=== PATIENT | male | born 1975 | race African-American/Black ===

== ENCOUNTER 2017-08-06 12:33 | Emergency (ER) | payer SELFPAY ==
[2017-08-06 12:40] VITALS: BP 196/116; BMI 34.2
--- NOTE | 2017-08-06 13:48 | DR.GENAD ---
HPI - PCP Primary Care Physician: NFD - HPI Comment HPI Comment: PAIN IS SHARP AND GO ACROSS CHEST. RADIATES TO ARMS. NO FEVER. WEAK AND SOB. PAIN INTERMITTENT. WORSE TODAY. ALSO EPIGASTRIC PAIN PRESENT. - Complaint/Symptoms Chief Complaint Doctors Comments: CHEST PAIN Chief Complaint:: PATIENT STATED THAT HIS CHEST HAS BEEN HURTING FOR WEEKS NOW. IT JUST STARTED ALL OF A SUDDEN. HE STATED THAT IS GOES ACROSS THE CHEST AND ALSO HAVE RIGHT ARM PAIN. - Nurses notes reviewed Nurses Notes Review: Yes - Source History Provided: Patient - Mode of Arrival Mode of Arrival: Ambulatory - Timing Onset of Chief Complaint: 07/23/17 Came on: Gradually - Duration Duration: Intermittent Duration: Weeks - Severity Severity: Moderate PMH - PMH Past Medical History: Yes Past Medical History: Hypertension Past Surgical History: No - Family History History of Family Medical Conditions: Yes Family Medical History: Cancer - Social History Does patient currently use any type of tobacco product: Yes Have you used tobacco products in the last 12 months: Yes Type of Tobacco Use: Cigars Does any household member use tobacco: No Alcohol Use: Occasionally Do you use any recreational Drugs:: No Lives With: Family Lives Where: Home - infectious screening In the last 2 months have you had wt loss of >10#?: NO Have you had fever, night sweats or hemotysis?: No Have you traveled outside the country in the last 6 months?: No Isolation: Standard ROS - Review of Systems Constitutional: Weakness, Fatigue. negative: Chills, Fever Eyes: No Symptoms Reported. negative: Eye Pain, Discharge ENTM: No Symptoms Reported. negative: Ear Pain, Nose Discharge, Nose Congestion , Throat Pain Respiratoy: Non-Productive Cough, Short of Breath. negative: Productive Cough, Wheezing, Hemoptysis Cardiovascular: Chest Pain. negative: Edema, Palpitations Gastrointestinal/Abdominal: Abdominal Pain, Nausea. negative: Constipation, Diarrhea, Vomiting Genitourinary: No Symptoms Reported. negative: Dysuria, Frequency, Hematuria Neurological: Weakness. negative: Headache, Dizziness Musculoskeletal: No Symptoms Reported Integumentary: No Symptoms Reported Hematologic/Lymphatic: No Symptoms Reported Endocrine: No Symptoms Reported All Other Systems: Reviewed and Negative PE - Vital Signs Vitals: Temperature 98.7 F Pulse Rate 67 Respiratory Rate 20 Blood Pressure [Right Arm] 157/88 Blood Pressure 196/116 O2 Sat by Pulse Oximetry 99 - General Limitations: No Limitations General Appearance: Alert - Head Head Exam: Normal Inspection - Eyes Eye exam: Normal Appearance - ENT ENT Exam: Normal External Ear Exam External Ear Exam: Normal External Inspection TM/Canal Exam: Left Normal Nose Exam: Normal Nose Exam Mouth Exam: Normal Inspection Throat Exam: Normal Inspection - Neck Neck Exam: Trachea Midline - Chest Chest Inspection: Symmetric Chest Wall Rise - Respiratory Respiratory Exam: Normal Lung Sounds Bilat Respiratory Exam: Bilateral Clear to Auscultation - Cardiovascular Cardiovascular Exam: Regular Rate, Normal Rhythm, Normal Heart Sounds - Abdominal Exam Abdominal Exam: Normal Bowel Sounds, Soft. negative: Tenderness - Extremities Extremities Exam: Normal Inspection - Back Back Exam: Normal Inspection - Neurologic Neurological Exam: Alert, Oriented X3 - Psychiatric Psychiatric Exam: Normal Affect, Normal Mood - Skin Skin Exam: Normal Color MDM - Differential Diagnosis Differential Diagnosis: CHEST PAIN, ABDOMINAL PAIN Course - Treatment Treatment: SEE ORDERS - Education/Counseling Education/Counseling: Patient, Education Educated On: Treatment, Diagnosis, Needs for Follow Up ROR - Labs Reviewed Laboratory Results Reviewed?: Yes Result Diagrams: 08/06/17 14:00 08/06/17 14:00 Laboratory: WBC 6.1 X10^3/uL (3.6-10.0) 08/06/17 14:00 RBC 5.51 X10^6/uL (4.7-6.0) 08/06/17 14:00 Hgb 15.2 g/dL (13.5-18.0) 08/06/17 14:00 Hct 44.9 % (42.0-54.0) 08/06/17 14:00 MCV 81.5 fL (80.0-100.0) 08/06/17 14:00 MCH 27.7 pg (27.0-34.0) 08/06/17 14:00 MCHC 33.9 g/dL (33.0-35.0) 08/06/17 14:00 RDW 13.5 % (11.6-16.5) 08/06/17 14:00 Plt Count 245 X10^3/uL (150.0-450.0) 08/06/17 14:00 MPV 6.5 fL (7.4-11.0) L 08/06/17 14:00 Neut % 46.4 % (42.0-75.0) 08/06/17 14:00 Lymph % 35.5 % (21.0-51.0) 08/06/17 14:00 [place] % 11.1 % (0.0-13.0) 08/06/17 14:00 Eos % 5.8 % (0.9-2.9) H 08/06/17 14:00 Baso % 1.2 % (0.2-1.0) H 08/06/17 14:00 Neut # 2.9 x10^3/uL (2.2-4.8) 08/06/17 14:00 Lymph # 2.2 X10^3/uL (1.3-2.9) 08/06/17 14:00 [place] # 0.7 x10^3/uL (0.3-0.8) 08/06/17 14:00 Eos # 0.4 x10^3/uL (0.0-0.2) H 08/06/17 14:00 Baso # 0.1 X10^3/uL (0.0-0.1) 08/06/17 14:00 Absolute Nucleated RBC 0.0 /100WBC 08/06/17 14:00 D-Dimer 50.9 ng/mL (0-400) 08/06/17 14:00 Sodium 141 mmol/L (136-145) 08/06/17 14:00 Corrected Sodium TNP 08/06/17 14:00 Potassium 4.2 mmol/L (3.5-5.1) 08/06/17 14:00 Chloride 106 mmol/L (98-107) 08/06/17 14:00 Carbon Dioxide 29.2 mmol/L (21-32) 08/06/17 14:00 BUN 9 mg/dL (7-18) 08/06/17 14:00 Creatinine 1.06 mg/dL (0.70-1.30) 08/06/17 14:00 Est GFR (MDRD) Af Amer > 60 (>60) 08/06/17 14:00 Est GFR (MDRD) Non-Af > 60 (>60) 08/06/17 14:00 Glucose 91 mg/dL (65-99) 08/06/17 14:00 Calcium 8.9 mg/dL (8.5-10.1) 08/06/17 14:00 Corrected Calcium 9.7 mg/dL (8.5-10.1) 08/06/17 14:00 Total Bilirubin 0.30 mg/dL (0.2-1.0) 08/06/17 14:00 AST 15 Units/L (15-37) 08/06/17 14:00 ALT 21 Units/L (12-78) 08/06/17 14:00 Alkaline Phosphatase 70 Units/L (46-116) 08/06/17 14:00 Creatine Kinase 235 Units/L (39-308) 08/06/17 14:00 CK-MB (CK-2) 1.0 ng/mL (0-4.0) 08/06/17 14:00 CK/CKMB % Calc 0.4 % (<4) 08/06/17 14:00 Troponin I < 0.02 ng/mL (0-1.5) 08/06/17 14:00 Total Protein 7.1 g/dL (6.4-8.2) 08/06/17 14:00 Albumin 3.0 g/dL (3.4-5.0) L 08/06/17 14:00 Globulin 4.1 g/dL (2.5-4.5) 08/06/17 14:00 Albumin/Globulin Ratio 0.7 Ratio (1.1-2.1) L 08/06/17 14:00 H. pylori IgG Antibody Negative (NEGATIVE) 08/06/17 14:00 - XRAY XRAY Interpreted by: Radiologist XRAY Findings: REPORT DISCUSS WITH PATIENT - EKG Rhythm: NSR (EKG NOTED) - Diagnosis Discharge Problem: Chest pain Qualifiers: Chest pain type: intercostal pain Qualified Code(s): R07.82 - Intercostal pain Abdominal pain Qualifiers: Abdominal location: epigastric Qualified Code(s): R10.13 - Epigastric pain - Discharge Plan Disposition: 01 HOME, SELF-CARE Condition: Stable Prescriptions: Ketorolac Tromethamine [Toradol Tab] 10 mg PO Q8H PRN #12 tab PRN Reason: Pain Ranitidine HCl [ZANTAC TAB 150 MG *] 150 mg PO BID #60 tab - Follow ups/Referrals Follow ups/Referrals: NFD,None [Primary Care Provider] - 3 days - Instructions Instructions: Abdominal Pain, Adult, [id number], Chest Pain Observation Additional Instructions: RETURN TO ED IF WORSE.
[2017-08-06 14:08] LABS: BASOPHILS # (AUTO) 0.1 X10^3/uL (0.0-0.1); BASOPHILS % (AUTO) 1.2 % (0.2-1.0); EOSINOPHILS # (AUTO) 0.4 x10^3/uL (0.0-0.2); EOSINOPHILS % (AUTO) 5.8 % (0.9-2.9); HEMATOCRIT 44.9 % (42.0-54.0); HEMOGLOBIN 15.2 g/dL (13.5-18.0); LYMPHOCYTES # (AUTO) 2.2 X10^3/uL (1.3-2.9); LYMPHOCYTES % (AUTO) 35.5 % (21.0-51.0); MEAN CORPUSCULAR HEMOGLOBIN 27.7 pg (27.0-34.0); MEAN CORPUSCULAR HGB CONC 33.9 g/dL (33.0-35.0); MEAN CORPUSCULAR VOLUME 81.5 fL (80.0-100.0); MEAN PLATELET VOLUME 6.5 fL (7.4-11.0); MONOCYTES # (AUTO) 0.7 x10^3/uL (0.3-0.8); MONOCYTES % (AUTO) 11.1 % (0.0-13.0); NEUTROPHILS # (AUTO) 2.9 x10^3/uL (2.2-4.8); NEUTROPHILS % (AUTO) 46.4 % (42.0-75.0); PLATELET COUNT 245 X10^3/uL (150.0-450.0); RED BLOOD COUNT 5.51 X10^6/uL (4.7-6.0); RED CELL DISTRIBUTION WIDTH 13.5 % (11.6-16.5); WHITE BLOOD COUNT 6.1 X10^3/uL (3.6-10.0)
[2017-08-06 14:25] LABS: BLOOD UREA NITROGEN 9 mg/dL (7-18); CALCIUM 8.9 mg/dL (8.5-10.1); CARBON DIOXIDE 29.2 mmol/L (21-32); CHLORIDE 106 mmol/L (98-107); CREATININE 1.06 mg/dL (0.70-1.30); SODIUM 141 mmol/L (136-145); TROPONIN I < 0.02 ng/mL (0-1.5); eGFR BLACK RACES > 60 (>60); eGFR NON BLACK RACES > 60 (>60)
[2017-08-06 14:29] LABS: ALANINE AMINOTRANSFERASE 21 Units/L (12-78); ALKALINE PHOSPHATASE 70 Units/L (46-116); ASPARTATE AMINO TRANSFERASE 15 Units/L (15-37); CKMB % 0.4 % (<4); COR CA(FOR HYPOALB) 9.7 mg/dL (8.5-10.1); CREATINE KINASE 235 Units/L (39-308); TOTAL PROTEIN 7.1 g/dL (6.4-8.2)
--- NOTE | 2017-08-06 15:46 | RAD ---
HISTORY: Chest pain. Study: Single-view chest. Comparison: None. Findings: The trachea is midline. The cardiac silhouette is within normal limits. The lungs are clear without focal infiltrate or effusion. The bony thorax is unremarkable. IMPRESSION: No acute cardiopulmonary disease. Reported By:
[2017-08-06] MEDS ORDERED: PEPCID TAB 20 MG PO ONE (15:51)
[2017-08-06] MEDS ORDERED: TORADOL 60 MG VIAL IM ONE (15:52)
[2017-08-06] MEDS ORDERED: PEPCID TAB 20 MG ONE (16:01)
[2017-08-06] MEDS ORDERED: TORADOL 60 MG VIAL ONE (16:01)
== END 2017-08-06 16:17 | disposition home or self-care (01) ==
LOC: ER 12:51
DX: R07.82 Intercostal pain (principal); R10.13 Epigastric pain
CPT/HCPCS: 36415; 71010; 80053; 82550; 82553; 84484; 85025; 85378; 86677; 93005; 93010; 96372; 99282; 99283; J1885

== ENCOUNTER 2018-02-12 07:19 | Emergency (ER) | payer SELFPAY ==
[2018-02-12 07:23] VITALS: BP 193/99; BMI 34.2
[2018-02-12] MEDS ORDERED: TORADOL 30 MG VIAL IM ONE (07:50)
[2018-02-12] MEDS ORDERED: TORADOL 60 MG VIAL ONE (07:57)
--- NOTE | 2018-02-12 07:58 | RAD ---
History: Right shoulder pain Study: Right shoulder two views Findings: AP views of the right shoulder in internal and external rotation show no obvious fracture o r displacement. Mild osteoarthritic changes of the AC joint are noted. The cartilage space at the gle nohumeral joint is slightly narrowed as well. Thus capital a in clavicle as visualized are without de monstrated fracture. Little movement is seen in between the labeled internal and external rotation view Impression: 1. 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 2. No obvious fracture is seen. Relatively little movement is seen between the views labeled internal and external rotation. A scapular Y-view or axillary view may be considered for further delineation if symptoms persist. Reported By:
--- NOTE | 2018-02-12 08:00 | DR.GENAD ---
HPI - PCP Primary Care Physician: DR. REYES - HPI Comment HPI Comment: shoulder pain x 2 days. No known hx trauma, pt thinks he may have slept on it wrong. He does lift plywood all day at work - Complaint/Symptoms Chief Complaint:: PATIENT STATED THAT HE SLEEP ON HIS RIGHT SHOULDER WRONG YESTERDAY MORNING AND EVER SINCE IT HAS BEEN GIVING HIM SEVERE PAIN. - Nurses notes reviewed Nurses Notes Review: Yes - Source History Provided: Patient - Mode of Arrival Mode of Arrival: Ambulatory - Timing Onset of Chief Complaint: 02/10/18 - Duration Duration: Since Onset How lon Duration: Days - Severity Severity: Moderate PMH - PMH Past Medical History: Yes (no prior injury/surgery) Past Medical History: Hypertension Past Surgical History: No - Family History History of Family Medical Conditions: Yes Family Medical History: Cancer - Social History Does patient currently use any type of tobacco product: Yes Have you used tobacco products in the last 12 months: Yes Type of Tobacco Use: Cigars Does any household member use tobacco: No Alcohol Use: None Do you use any recreational Drugs:: No Lives With: Family Lives Where: Home - infectious screening In the last 2 months have you had wt loss of >10#?: NO Have you had fever, night sweats or hemotysis?: No Have you traveled outside the country in the last 6 months?: No Isolation: Standard ROS - Review of Systems Constitutional: No Symptoms Reported Eyes: No Symptoms Reported ENTM: No Symptoms Reported Respiratoy: No Symptoms Reported Cardiovascular: No Symptoms Reported Gastrointestinal/Abdominal: No Symptoms Reported Genitourinary: No Symptoms Reported Neurological: No Symptoms Reported Musculoskeletal: Joint Pain, Right, Shoulder Integumentary: No Symptoms Reported. negative: Rash Hematologic/Lymphatic: No Symptoms Reported Endocrine: No Symptoms Reported Psychiatric: No Symptoms Reported All Other Systems: Reviewed and Negative PE - Vital Signs Vitals: Temperature 98.3 F Pulse Rate 73 Respiratory Rate 20 Blood Pressure [Right Arm] 157/88 Blood Pressure 193/99 O2 Sat by Pulse Oximetry 99 - General Limitations: No Limitations General Appearance: Alert, In No Apparent Distress - Head Head Exam: Normal Inspection, Normocephalic - Eyes Eye exam: Normal Appearance - ENT ENT Exam: Normal Exam Throat Exam: Normal Inspection - Neck Neck Exam: Normal Inspection, Full ROM, Trachea Midline. negative: Tenderness, Meningismus, Lymphadenopathy - Chest Chest Inspection: Normal Inspection, Symmetric Chest Wall Rise - Respiratory Respiratory Exam: Bilateral Clear to Auscultation - Cardiovascular Cardiovascular Exam: Regular Rate, Normal Rhythm, Normal Heart Sounds - Abdominal Exam Abdominal Exam: Normal Inspection, Normal Bowel Sounds, Soft. negative: Tenderness - Back Back Exam: Other (rt shoulder normal inspection, +TTP ant aspect AC jt, no palpable deformity. FROM RUE, good radial and ulnar pulses RUE. No muscle wasting.) - Neurologic Neurological Exam: Alert, Oriented X3 - Psychiatric Psychiatric Exam: Normal Affect, Normal Mood - Skin Skin Exam: Warm, Dry, Intact ROR - Labs Reviewed Laboratory Results Reviewed?: No - XRAY XRAY Interpreted by: Radiologist XRAY Findings: nothing acute seen on rt shoulder Xray. - Diagnosis Discharge Problem: Shoulder pain, right - Discharge Plan Disposition: HOME, SELF-CARE Condition: Stable Prescriptions: Ketorolac Tromethamine [Toradol Tab] 10 mg PO Q8H PRN #12 tab PRN Reason: Pain - Follow ups/Referrals Follow ups/Referrals: NFD,None [Primary Care Provider] - 3 days - Instructions Additional Notes - Additional Notes Additional Notes: reviewed xray findings with pt. Told him ortho f/u or f/u PCFP for MRI may be needed if rotator cuff tear is etiology. Will d/c home with toradol PO, off work note today, tomorrow.
== END 2018-02-12 08:24 | disposition home or self-care (01) ==
LOC: ER 07:27
DX: M25.511 Pain in right shoulder (principal)
CPT/HCPCS: 73030; 96372; 99282; J1885